=== PATIENT | female | born 1980 | race Caucasian/White ===

== ENCOUNTER 2021-08-13 18:53 | Emergency (ER) | payer OTHER ==
[~2021-08-13] VITALS: Ht 167.6 cm; Wt 108.9 kg
[~2021-08-13 18:53] MED LIST: PRENATAL PO; PRENATAL TABLE1 EAC3 PO; ZOFRAN ODT4 MG PO
[2021-08-13] MEDS ORDERED: XANAX2 MG PO (19:08)
[2021-08-13] MEDS ORDERED: PRISTIQ100 MG PO (19:08)
[2021-08-13] MEDS ORDERED: HYDROXYZIN10 MG/5 ML PO (19:09)
[2021-08-13 19:11] LABS: URINE BILIRUBIN NEGATIVE (Negative); URINE BLOOD NEGATIVE (Negative); URINE CLARITY CLEAR; URINE COLOR YELLOW; URINE GLUCOSE-RANDOM NEGATIVE (Negative); URINE KETONES NEGATIVE (Negative); URINE LEUKOCYTES-REFLEX NEGATIVE (Negative); URINE NITRITE-REFLEX NEGATIVE (Negative); URINE PROTEIN NEGATIVE (Negative); URINE UROBILINOGEN 0.2 E.U./dl (0.2-1.0)
[2021-08-13 19:34] LABS: ABSOLUTE BASOPHILS 0.1 thou/uL (0.0-0.2); ABSOLUTE EOSINOPHILS 0.2 thou/uL (0.0-0.7); ABSOLUTE LYMPHOCYTES 2.2 thou/uL (0.8-5.3); ABSOLUTE MONOCYTES 0.5 thou/uL (0.0-1.2); BASOPHILS 0.6 %; EOSINOPHILS 1.6 %; HEMATOCRIT 38.8 % (37.0-47.0); HEMOGLOBIN 13.2 gm/dL (12.0-15.0); LYMPHOCYTES 22.5 %; MCH 28.9 pg (26.0-34.0); MONOCYTES 5.2 %; MPV 7.6 fl. (7.2-11.1); NUCLEATED RBCS 0 /100WBC; PLATELET COUNT* 320 thou/uL (150-400); POLYS 70.1 %; RBC 4.57 mil/uL (4.20-5.00); RDW-CV 13.1 % (10.5-14.5)
[2021-08-13 19:44] LABS: CALCIUM 9.1 mg/dL (8.5-10.1); CREATININE 0.9 mg/dL (0.6-1.3); POTASSIUM 3.6 mmol/L (3.5-5.1)
[2021-08-13 19:48] LABS: ALBUMIN 3.8 g/dL (3.4-5.0); TOTAL BILIRUBIN 0.2 mg/dL (<0.1-1.0); TOTAL PROTEIN 7.6 g/dL (6.4-8.2)
[2021-08-13] MEDS ORDERED: PYRIDIUM100 M1 PO (20:38)
[2021-08-13] MEDS ORDERED: BUTALB-APAP-CA1 EACH PO (20:38)
[2021-08-13] MEDS ORDERED: ONDANSETRON ODT4 MG PO (20:38)
[2021-08-13 21:15] VITALS: BP 146/68
== END 2021-08-13 21:15 | disposition home or self-care (01) ==
LOC: M.ERS 18:53
PROVIDERS: Physician Assistant
DX: R10.30 Lower abdominal pain, unspecified (principal); Z20.822 Contact with and (suspected) exposure to COVID-19; R51.9 Headache, unspecified; R31.9 Hematuria, unspecified; R11.0 Nausea; Z87.442 Personal history of urinary calculi; Z79.899 Other long term (current) drug therapy; Z88.1 Allergy status to other antibiotic agents

== ENCOUNTER 2022-01-05 14:56 | Emergency (ER) | payer OTHER ==
[~2022-01-05] VITALS: Ht 167.6 cm; Wt 97.5 kg
[~2022-01-05 14:56] MED LIST changes: +BUTALB-APAP-CA1 EACH PO; +HYDROXYZIN10 MG/5 ML PO; +ONDANSETRON ODT4 MG PO; +PRISTIQ100 MG PO; +PYRIDIUM100 M1 PO; +XANAX2 MG PO
[2022-01-05] MEDS ORDERED: ADDERALL XR 3030 MG PO (15:11)
[2022-01-05 15:12] LABS: URINE BILIRUBIN NEGATIVE (Negative); URINE BLOOD NEGATIVE (Negative); URINE CLARITY CLEAR; URINE COLOR YELLOW; URINE GLUCOSE-RANDOM NEGATIVE (Negative); URINE KETONES NEGATIVE (Negative); URINE LEUKOCYTES-REFLEX TRACE (Negative); URINE NITRITE-REFLEX NEGATIVE (Negative); URINE PROTEIN NEGATIVE (Negative); URINE SPECIFIC GRAVITY <= 1.005 (1.005-1.030); URINE UROBILINOGEN 0.2 E.U./dl (0.2-1.0)
[2022-01-05 15:24] LABS: BACTERIA-REFLEX 1-9 Few /HPF (None Seen); SQUAMOUS 4-10 Moderate /LPF (0-3); URINE RBC 0-2 Rare /HPF (0-2); URINE WBC-REFLEX 0-5 Rare /HPF (0-5)
[2022-01-05 15:25] LABS: CASTS None Seen /LPF (None Seen); CRYSTALS None Seen /LPF (None Seen)
[2022-01-05 15:25] LABS: HEMATOCRIT 40.5 % (37.0-47.0); HEMOGLOBIN 13.8 gm/dL (12.0-15.0); MCH 29.5 pg (26.0-34.0); MCV 86.8 fL (80.0-100.0); MPV 7.9 fl. (7.2-11.1); RBC 4.67 mil/uL (4.20-5.00); RDW-CV 13.8 % (10.5-14.5); WBC 11.7 thou/uL (4.0-11.0)
[2022-01-05 15:31] LABS: CREATININE 0.8 mg/dL (0.6-1.3); POTASSIUM 3.6 mmol/L (3.5-5.1)
[2022-01-05 15:35] LABS: ALBUMIN 4.1 g/dL (3.4-5.0); TOTAL BILIRUBIN 0.2 mg/dL (<0.1-1.0); TOTAL PROTEIN 8.5 g/dL (6.4-8.2)
[2022-01-05] MEDS ORDERED: ZOFRAN ODT4 MG PO (17:24)
[2022-01-05 18:16] VITALS: BP 120/72
== END 2022-01-05 18:17 | disposition home or self-care (01) ==
LOC: M.ERS 14:56
PROVIDERS: Emergency Medicine Emergency Medical Services
DX: O26.891 Other specified pregnancy related conditions, first trimester (principal); R10.31 Right lower quadrant pain; R10.32 Left lower quadrant pain; Z3A.01 Less than 8 weeks gestation of pregnancy; Z88.1 Allergy status to other antibiotic agents